=== PATIENT | male | born 1985 | race African-American/Black ===

== ENCOUNTER 2019-01-19 15:19 | Emergency (ER) | payer OTHER ==
[~2019-01-19] VITALS: Ht 185.4 cm; Wt 68.0 kg
[2019-01-19 15:42] VITALS: BP 118/75
[2019-01-19] MEDS ORDERED: PENICILLIN G BENZATHINE 1,200,000 UNITS/2ML SYR IM ONE (16:30)
== END 2019-01-19 17:09 | disposition home or self-care (01) ==
LOC: ER 17:08
DX: A53.9 Syphilis, unspecified (principal)
CPT/HCPCS: 96372; 99283; J0561